=== PATIENT | female | born 1950 | race Caucasian/White ===

== ENCOUNTER 2018-02-03 13:03 | Emergency (ER) | payer MEDICARE ==
[~2018-02-03] VITALS: Ht 161.3 cm; Wt 120.5 kg
[~2018-02-03 13:03] MED LIST: BACT800T5 PO; BENA20TA PO; CEPH500C3 PO; DICY10CA13 PO; LEVO50TA51 PO; LORA0.5T PO; PERC7.5T13 PO
[2018-02-03 13:09] VITALS: BP 148/70; PULSE 78; RESP 20; TEMP 98; O2SAT 98
[2018-02-03] MEDS ORDERED: LEVO50TA4 PO (16:03)
[2018-02-03] MEDS ORDERED: BENA5TAB2 PO (16:03)
[2018-02-03] MEDS ORDERED: LORA0.5T PO (16:03)
[2018-02-03 16:04] VITALS: O2SAT 98
--- NOTE | 2018-02-03 16:37 | PD ---
HPI Chief Complaint: Skin Problem Time Seen by Provider: 15:35 Travel History International Travel<30 days: Yes Contact w/Intl Traveler<30days: [place] Traveled to: [place] Traveled to known affect area: No History of Present Illness HPI This is a 68-year-old female with a history of uterine cancer, recurrent right lower extremity cellulitis, who presents today from Dr. Smith's office for evaluation of worsening cellulitis of the right lower extremity. The patient reports low-grade fever at home. She has been on Bactrim for this cellulitis however it is not resolved. The patient is also on chemotherapy for her uterine cancer. There is no reported urinary symptoms. There is no nausea vomiting diarrhea. PFSH Past Medical History Arthritis: Yes (FINGERS FEET) Anxiety: Yes Cancer: Yes Cardiovascular Problems: Yes (htn on meds) Chemotherapy: Yes (2012) Diabetes: Yes (diet control) Diminished Hearing: No Endocrine: No Gastrointestinal Disorders: Yes (REFLUX IBS) GERD: Yes Genitourinary: No Hepatitis: No Hiatal Hernia: No Hypertension: Yes Immune Disorder: No Implanted Vascular Access Dvce: Yes Musculoskeletal: No Neurologic: No Psychiatric: No Reproductive: No Respiratory: No Immunizations Current: No Radiation Therapy: No Thyroid Disease: Yes Ulcer: No ?: Not Past Surgical History Abdominal Surgery: Yes (ex lap. ) AICD: No Arteriovenous Shunt: No Body Medical Devices: RIGHT CHEST PORT Cardiac Surgery: No Cholecystectomy: Yes Ear Surgery: No Endocrine Surgery: No Eye Surgery: Yes Genitourinary Surgery: No Gynecologic Surgery: Yes (uterine cancer) Hysterectomy: Yes (2012) Insulin Pump: No Joint Replacement: No Oral Surgery: No Pacemaker: No Thoracic Surgery: No Other Surgery: Yes (exploratory uterine cancer removal) Social History Alcohol Use: Yes (wine couple of glasses a night. ) Tobacco Use: No Substance Use: No Allergies-Medications (Allergen,Severity, Reaction): Coded Allergies: Fish Containing Products (Unverified Allergy, Severe, HX IBS, 05/21/17) ipratropium (Unverified Allergy, Severe, HX IBS, 05/21/17) Reported Meds & Prescriptions Reported Meds & Active Scripts Active Lorcet (Hydrocodone-Acetaminophen) 5-325 mg Tab 1 Tab PO Q6H PRN 20 Days Reported Lorazepam 0.5 Mg Tab 0.5 Mg PO TID PRN Levothyroxine (Levothyroxine Sodium) 50 Mcg Tab 50 Mcg PO DAILY Benazepril-Hydrochlorothiazide 5-6.25 Mg Tab 1 Tab PO DAILY Review of Systems Except as stated in HPI: all other systems reviewed are Neg General / Constitutional: No: Fever, Chills HENT: No: Headaches, Lightheadedness Cardiovascular: No: Chest Pain or Discomfort, Palpitations, Irregular Rhythm Respiratory: No: Cough, Shortness of Breath Gastrointestinal: No: Nausea, Vomiting, Abdominal Pain Musculoskeletal: Positive: Edema, Pain, Other (Redness of the right lower extremity) Skin: Positive Other (Red warm cellulitis of the right lower extremity) Neurologic: Positive: Weakness, No: Dizziness, Headache Physical Exam Narrative GENERAL: Well-developed well-nourished female in no acute respiratory distress. SKIN: Focused skin assessment warm/dry. HEAD: Atraumatic. Normocephalic. EYES: Pupils equal and round. No scleral icterus. No injection or drainage. ENT: No nasal bleeding or discharge. Mucous membranes pink and moist. NECK: Trachea midline. No JVD. CARDIOVASCULAR: Regular rate and rhythm. No murmur appreciated. RESPIRATORY: No accessory muscle use. Clear to auscultation. Breath sounds equal bilaterally. GASTROINTESTINAL: Abdomen soft, non-tender, nondistended. Hepatic and splenic margins not palpable. MUSCULOSKELETAL: No obvious deformities. Right lower extremity is red warm to the touch. There is swelling and edema. There are no obvious draining lesions. NEUROLOGICAL: Awake and alert. No obvious cranial nerve deficits. Motor grossly within normal limits. Normal speech. Data Data Last Documented VS Vital Signs Date Time Temp Pulse Resp B/P (MAP) Pulse Ox O2 Delivery O2 Flow Rate FiO2 02/03/18 16:04 98 Room Air 02/03/18 15:35 18 02/03/18 13:09 98.0 78 148/70 (96) Orders Orders Complete Blood Count With Diff (02/03/18 13:13) Comprehensive Metabolic Panel (02/03/18 13:13) Prothrombin Time / Inr (Pt) (02/03/18 13:13) Act Partial Throm Time (Ptt) (02/03/18 13:13) Lactic Acid Sepsis Protocol (02/03/18 13:13) Blood Culture (02/03/18 15:49) Iv Access Insert/Monitor (02/03/18 15:49) Ecg Monitoring (02/03/18 15:49) Oximetry (02/03/18 15:49) Urinalysis - C+S If Indicated (02/03/18 15:49) Sodium Chlor 0.9% 1000 Ml Inj (Ns 1000 M (02/03/18 17:00) Sodium Chlorid 0.9% 500 Ml Inj (Ns 500 M (02/03/18 17:00) Case Management Consult (02/03/18 ) [place] [place]03/18 18:15[place] Inj (Dalvance Inj) (02/03/18 18:12) Labs Laboratory Tests Test 02/03/18 16:06 02/03/18 16:55 White Blood Count 7.8 TH/MM3 Red Blood Count 3.01 MIL/MM3 Hemoglobin 8.9 GM/DL Hematocrit 26.5 % Mean Corpuscular Volume 87.8 FL Mean Corpuscular Hemoglobin 29.7 PG Mean Corpuscular Hemoglobin Concent 33.8 % Red Cell Distribution Width 15.2 % Platelet Count 99 TH/MM3 Mean Platelet Volume 8.8 FL Neutrophils (%) (Auto) 92.6 % Lymphocytes (%) (Auto) 5.7 % Monocytes (%) (Auto) 0.6 % Eosinophils (%) (Auto) 1.0 % Basophils (%) (Auto) 0.1 % Neutrophils # (Auto) 7.3 TH/MM3 Lymphocytes # (Auto) 0.4 TH/MM3 Monocytes # (Auto) 0.0 TH/MM3 Eosinophils # (Auto) 0.1 TH/MM3 Basophils # (Auto) 0.0 TH/MM3 CBC Comment AUTO DIFF Differential Comment AUTO DIFF CONFIRMED Prothrombin Time 9.9 SEC Prothromb Time International Ratio 1.0 RATIO Activated Partial Thromboplast Time 28.4 SEC Blood Urea Nitrogen 40 MG/DL Creatinine 2.18 MG/DL Random Glucose 100 MG/DL Total Protein 6.8 GM/DL Albumin 3.2 GM/DL Calcium Level 9.0 MG/DL Alkaline Phosphatase 88 U/L Aspartate Amino Transf (AST/SGOT) 51 U/L Alanine Aminotransferase (ALT/SGPT) 92 U/L Total Bilirubin 0.4 MG/DL Sodium Level 138 MEQ/L Potassium Level 4.9 MEQ/L Chloride Level 107 MEQ/L Carbon Dioxide Level 21.2 MEQ/L Anion Gap 10 MEQ/L Estimat Glomerular Filtration Rate 23 ML/MIN Lactic Acid Level 0.8 mmol/L Urine Color YELLOW Urine Turbidity CLEAR Urine pH 5.5 Urine Specific [place] 1.023 Urine Protein NEG mg/dL Urine Glucose (UA) NEG mg/dL Urine Ketones NEG mg/dL Urine Occult Blood NEG Urine Nitrite NEG Urine Bilirubin NEG Urine Urobilinogen 2.0 MG/DL Urine Leukocyte Esterase NEG Urine WBC 1 /hpf Urine Squamous Epithelial Cells 2 /hpf Urine Hyaline Casts 2 /lpf Microscopic Urinalysis Comment CULT NOT INDICATED MDM Medical Decision Making Medical Screen Exam Complete: Yes Emergency Medical Condition: Yes Differential Diagnosis Cellulitis versus DVT versus lymphedema Narrative Course 68-year-old female presents with redness and swelling of her right lower extremity. The patient has had recurrent cellulitis in the right lower extremity. The patient has had 2 ultrasounds of the right lower extremity previously to rule out DVT. She has had low-grade fever at home. There have been blood cultures sent. She will be started on vancomycin. She is receiving IV fluids as well. The patient's creatinine is 2.18. This is slightly higher than it has been previously. She has been given 2 L of IV fluids. The patient' s white blood cell count is 7.8. This patient is a good candidate for Dalvance. I discussed with the patient the option of her going home with this one-time dose of antibiotics. She states that she would rather go home. We will administer the Delavance and I will write her prescription for pain meds for home. She is instructed to return if redness increases. Otherwise she will be instructed to follow-up with Dr. Smith and her primary care physician. She will need only 1 dose of the IV Dalvance. Diagnosis Primary Impression: Right lower extremity cellulitis, failed outpatient treatment Additional Impressions: HTN (hypertension) History of uterine cancer Renal insufficiency Additional Instructions: Return if increased redness, fevers chills, or any other reason. You will only need this 1 dose of IV antibiotics that will last up to 10 days. Increase her fluid intake. Follow-up with Dr. Smith or your primary care physician as needed. Elevate leg and avoid long periods of time of standing. Med/Other Pt SpecificInfo: Prescription(s) given Scripts Hydrocodone-Acetaminophen (Lorcet) 5-325 mg Tab 1 TAB PO Q6H Y for PAIN for 20 Days, #80 TAB 0 Refills Prov: Vimal Santana MD 02/03/18 Disposition: 01 DISCHARGE HOME Condition: Stable Vimal Santana MD Feb 03, 2018 16:37
[2018-02-03 16:53] LABS: AUTOMATED NEUTROPHIL # 7.3 TH/MM3 (1.8-7.7); BASOPHIL % 0.1 % (0.0-2.0); EOSINOPHIL # 0.1 TH/MM3 (0-0.4); HEMATOCRIT 26.5 % (35.0-46.0); HEMOGLOBIN 8.9 GM/DL (11.6-15.3); LYMPH % 5.7 % (9.0-44.0); LYMPHOCYTE # 0.4 TH/MM3 (1.0-4.8); MEAN CELL VOLUME 87.8 FL (80.0-100.0); MEAN CORPUSCULAR HEMOGLOBIN 29.7 PG (27.0-34.0); MEAN CORPUSCULAR HGB CONC 33.8 % (32.0-36.0); MEAN PLATELET VOLUME 8.8 FL (7.0-11.0); MONO % 0.6 % (0.0-8.0); NEUT % 92.6 % (16.0-70.0); PLATELET COUNT 99 TH/MM3 (150-450); RED BLOOD COUNT 3.01 MIL/MM3 (4.00-5.30); RED CELL DISTRIBUTION WIDTH 15.2 % (11.6-17.2); WHITE BLOOD COUNT 7.8 TH/MM3 (4.0-11.0)
[2018-02-03] MEDS ORDERED: SODIUM CHLOR 0.9% 1000 ML INJ 1,000 ML IV SCH (17:00)
[2018-02-03] MEDS ORDERED: SODIUM CHLORID 0.9% 500 ML INJ 500 ML IV ONE (17:00)
[2018-02-03 17:13] LABS: PROTHROMBIN TIME - PATIENT 9.9 SEC (9.8-11.6)
[2018-02-03 17:22] LABS: ALBUMIN 3.2 GM/DL (3.4-5.0); AST (GOT) 51 U/L (15-37); BICARBONATE 21.2 MEQ/L (21.0-32.0); BLOOD UREA NITROGEN 40 MG/DL (7-18); CHLORIDE 107 MEQ/L (98-107); CREATININE 2.18 MG/DL (0.50-1.00); GLOMERULAR FILTRATION RATE 23 ML/MIN (>89); GLUCOSE,RANDOM 100 MG/DL (74-106); SODIUM (NA) 138 MEQ/L (136-145)
[2018-02-03 17:27] LABS: ALKALINE PHOSPHATASE 88 U/L (45-117); ALT (GPT) 92 U/L (10-53); TOTAL BILIRUBIN ADULT 0.4 MG/DL (0.2-1.0); TOTAL PROTEIN 6.8 GM/DL (6.4-8.2)
[2018-02-03 17:36] LABS: BILIRUBIN, URINE NEG (NEG); BLOOD, URINE NEG (NEG); GLUCOSE,URINE NEG (NEG); HYALINE CAST, URINE 2 /lpf (RARE); KETONE, URINE NEG (NEG); NITRITE,URINE NEG (NEG); PH, URINE 5.5 (5.0-8.5); SQUAMOUS EPITHELIAL CELL URINE 2 /hpf (0-5); URINE COLOR YELLOW (YELLW/STRAW); URINE LEUKOCYTE ESTERASE NEG (NEG)
[2018-02-03] MEDS ORDERED: VANCOMYCIN INJ 1,000 MG in SODIUM CHLOR 0.9% 250 ML INJ 250 ML IV ONE (18:00)
[2018-02-03] MEDS ORDERED: DALBAVANCIN INJ 1,125 MG in DEXTROSE 5% IN WATER INJ 250 ML IV STA ×2 (18:12)
[2018-02-03] MEDS ORDERED: PHARMACY INFORMATION XX ONE (18:15)
[2018-02-03] MEDS ORDERED: HYDR-3576 PO (18:45)
== END 2018-02-03 21:25 | disposition home or self-care (01) ==
LOC: NEPC 13:03
DX: C55 Malignant neoplasm of uterus, part unspecified (principal); L03.115 Cellulitis of right lower limb; I10 Essential (primary) hypertension; N28.9 Disorder of kidney and ureter, unspecified
CPT/HCPCS: 80053; 81001; 83605; 85025; 85610; 85730; 87040; 96361; 96374; 99284; J0875; J7040; J7060